=== PATIENT | female | born 1995 | race Caucasian/White ===

== ENCOUNTER 2019-10-26 00:18 | Emergency (ER) | payer SELFPAY ==
[~2019-10-26] VITALS: Ht 162.6 cm; Wt 84.1 kg
[2019-10-26 00:21] VITALS: TEMP 98.6
[2019-10-26 02:16] VITALS: BP 136/92; PULSE 81
== END 2019-10-26 02:16 | disposition home or self-care (01) ==
LOC: COL.ER 00:18
DX: S81.811A Laceration without foreign body, right lower leg, initial encounter (principal); Z23 Encounter for immunization

== ENCOUNTER → 2019-11-08 | Outpatient (CLI) | payer OTHER | LOC: COL.ER 13:20 | DX: Z48.02 Encounter for removal of sutures (principal) ==

== ENCOUNTER → 2019-11-09 | Outpatient (CLI) | payer OTHER | LOC: COL.ER 14:22 | DX: Z48.02 Encounter for removal of sutures (principal) ==